=== PATIENT | male | born 1960 | race Two or more races ===

== ENCOUNTER 2023-01-15 19:52 | Emergency (ER) | payer OTHER ==
[~2023-01-15] VITALS: Ht 182.9 cm; Wt 115.9 kg
[2023-01-15 20:26] VITALS: BP 122/73
[2023-01-16] MEDS ORDERED: IBUP600T27 PO (00:47)
== END 2023-01-16 00:55 | disposition home or self-care (01) ==
LOC: ER 19:52
DX: S80.01XA Contusion of right knee, initial encounter (principal); I10 Essential (primary) hypertension; W22.8XXA Striking against or struck by other objects, initial encounter; Y93.89 Activity, other specified; Y92.89 Other specified places as the place of occurrence of the external cause; Y99.0 Civilian activity done for income or pay
CPT/HCPCS: 73562

== ENCOUNTER 2023-01-19 14:58 | Emergency (ER) | payer OTHER ==
[~2023-01-19] VITALS: Ht 182.9 cm; Wt 126.2 kg
[~2023-01-19 14:58] MED LIST: IBUP600T27 PO
[2023-01-19] MEDS ORDERED: KETOROLAC TROMETH 30 MG/ML 1ML VIAL IM ONE (20:15)
[2023-01-19 20:25] VITALS: BP 118/77
[2023-01-19] MEDS ORDERED: IBUP600T27 PO (20:47)
== END 2023-01-19 21:04 | disposition home or self-care (01) ==
LOC: ER 14:58
DX: M25.561 Pain in right knee (principal); M25.511 Pain in right shoulder; X58.XXXA Exposure to other specified factors, initial encounter; Y93.89 Activity, other specified; Y92.89 Other specified places as the place of occurrence of the external cause; Y99.8 Other external cause status
CPT/HCPCS: 73030; 73562; 96372; 99284; J1885